=== PATIENT | female | born 1995 | race Hispanic/Latino ===

== ENCOUNTER 2017-10-12 20:06 | Emergency (ER) | payer SELFPAY ==
[~2017-10-12] VITALS: Ht 175.3 cm; Wt 124.7 kg
[~2017-10-12 20:06] MED LIST: FLAGYL250 MG PO
[2017-10-12] MEDS ORDERED: TETANUS/DIPHTHERIA TOX ADULT 0.5 ML SYR IM ONE (20:30)
[2017-10-13] MEDS ORDERED: TETANUS/DIPHTHERIA TOX ADULT 0.5 ML SYR ONE (00:03)
[2017-10-13 02:51] VITALS: BP 128/76
== END 2017-10-13 | disposition home or self-care (01) ==
LOC: ER 20:06
PROC: 2W2LX4Z Dressing of Right Lower Extremity using Bandage (ICD-10-PCS; principal; 2017-10-12)
DX: T24.131A Burn of first degree of right lower leg, initial encounter (principal); T31.0 Burns involving less than 10% of body surface; X16.XXXA Contact with hot heating appliances, radiators and pipes, initial encounter; Y93.89 Activity, other specified
CPT/HCPCS: 90471; 99283